=== PATIENT | female | born 1945 | race Caucasian/White ===

== ENCOUNTER 2016-10-14 10:08 | Day surgery (SDC) | payer MEDICARE, OTHER ==
[~2016-10-14 10:08] MED LIST: Lactated Ringers 1,000 ML IV SCH; Sodium Chloride 0.9% 10 ML Syringe FLUSH PRN
--- NOTE | 2016-10-14 11:41 | PCM.HPR ---
H & P Addendum review - H & P Addendum Review Date of Original H & P: 10/04/16 Date Reviewed: 10/14/16 Time Reviewed: 11:41 Patient was examined: No Changes (ok to proceed with colonoscopy)
[2016-10-14] MEDS ORDERED: Midazolam 1 MG/ML 2 ML SDV ONE ×2 (11:43→12:00)
[2016-10-14] MEDS ORDERED: Propofol 200 MG/20 ML SDV ONE ×2 (11:44→12:00)
--- NOTE | 2016-10-14 12:12 | PCM.OPNOTE ---
- General Post-Op/Procedure Note Date of Surgery/Procedure: 10/14/16 Operative Procedure(s): Colonoscopy Findings: Normal Pre Op Diagnosis: Hx Polyps Post-Op Diagnosis: Same Anesthesia Technique: MAC Primary Surgeon: Perico Marshall Anesthesia Provider: Martha Perkins Complications: None Condition: Good Free Text/Narrative:: Intake & Output 10/13/16 10/14/16 10/14/16 22:59 06:59 14:59 Intake Total 500 Balance 500
[2016-10-14 12:59] VITALS: BP 136/81
--- NOTE | 2016-10-14 14:59 | OR ---
Date of Procedure: 10/14/2016 PREOPERATIVE DIAGNOSIS: History of colon polyps. POSTOPERATIVE DIAGNOSIS: Normal colonoscopy. PROCEDURE: Colonoscopy. ANESTHESIA: IV sedation. PROCEDURE IN DETAIL: Patient was brought to procedure room, where she was placed on her left side and IV sedation administered. Digital rectal exam was performed which was normal. Colonoscope was inserted and advanced to the level of the cecum without difficulty. Cecal position was confirmed by identifying the appendiceal lumen and ileocecal valve. Prep was good and surfaces were well visualized. Upon withdrawing the scope, the ascending, transverse, and descending colon were normal in appearance. Sigmoid colon and rectum were normal. Retroflexion was normal. Air was removed and the scope withdrawn. Patient tolerated the procedure well and returned to recovery in stable condition. Recommend routine colon screening again in 5 years. AISHA ARRIAGA MD /[id number]
== END 2016-10-14 13:25 | disposition home or self-care (01) ==
LOC: LL.SDS 10:08
PROVIDERS: ATTEND Surgery
DX: Z12.11 Encounter for screening for malignant neoplasm of colon (principal); Z86.010 Personal history of colon polyps; I10 Essential (primary) hypertension; F32.9 Major depressive disorder, single episode, unspecified; F41.9 Anxiety disorder, unspecified; Z90.710 Acquired absence of both cervix and uterus; Z79.899 Other long term (current) drug therapy; F17.200 Nicotine dependence, unspecified, uncomplicated
CPT/HCPCS: G0105; J2250; J2704; J7120; 00810-QZ

== ENCOUNTER 2019-11-15 10:29 | Emergency (ER) | payer MEDICARE, OTHER ==
[2019-11-15 10:32] VITALS: BP 165/76; PULSE 81
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
[2019-11-15 11:23] LABS: CHLORIDE,CL 102 mmol/L (98-107); SODIUM,NA 137 mmol/L (136-145)
== END 2019-11-15 11:45 | disposition home or self-care (01) ==
LOC: LL.ED 10:29
DX: F41.8 Other specified anxiety disorders (principal); I10 Essential (primary) hypertension; M89.49 Other hypertrophic osteoarthropathy, multiple sites; E78.5 Hyperlipidemia, unspecified; Z71.6 Tobacco abuse counseling; F17.210 Nicotine dependence, cigarettes, uncomplicated; Z79.899 Other long term (current) drug therapy; E78.00 Pure hypercholesterolemia, unspecified; J44.9 Chronic obstructive pulmonary disease, unspecified
CPT/HCPCS: 36415; 80053; 85025; 99283

== ENCOUNTER 2019-11-23 14:38 | Inpatient (IN) | payer MEDICARE, OTHER ==
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
[2019-11-23] MEDS ORDERED: Acetaminophen 325 MG Tab PO PRN (19:37)
[2019-11-23] MEDS ORDERED: Nicotine 21 MG/24 Hr Patch TRDERM SCH (19:45)
[2019-11-23] MEDS ORDERED: Simvastatin 20 MG Tab PO SCH (20:00)
[2019-11-23] MEDS: Mirtazapine 15 MG Tab PO SCH (20:20)
[2019-11-23] MEDS: QUEtiapine 25 MG Tab PO SCH (20:20)
[2019-11-23] MEDS: LORazepam 1 MG Tab PO SCH (20:20)
[2019-11-23] MEDS: Sodium Chloride 0.9% 10 ML Syringe FLUSH SCH (20:21)
[2019-11-24 08:12] LABS: CHLORIDE,CL 107 mmol/L (98-107); SODIUM,NA 142 mmol/L (136-145)
[2019-11-24] MEDS: Nicotine 21 MG/24 Hr Patch TRDERM SCH (09:21)
[2019-11-24] MEDS: Hydrochlorothiazide 25 MG Tab PO SCH (09:23)
[2019-11-24] MEDS: amLODIPine 5 MG Tab PO SCH (09:23)
[2019-11-24] MEDS: DULoxetine 30 MG Cap PO SCH (09:23)
[2019-11-24] MEDS: Lisinopril 20 MG Tab PO SCH (09:23)
[2019-11-24] MEDS: LORazepam 1 MG Tab PO SCH ×3 (09:24→20:11)
[2019-11-24] MEDS: QUEtiapine 25 MG Tab PO SCH ×2 (09:24→20:11)
[2019-11-24] MEDS: Sodium Chloride 0.9% 10 ML Syringe FLUSH SCH ×2 (09:28→20:11)
[2019-11-24] MEDS: Simvastatin 20 MG Tab PO SCH (09:28)
--- NOTE | 2019-11-24 11:15 | PCM.PN ---
- General Info Date of Service: 11/24/19 Admission Dx/Problem (Free Text): 1. Fatigue 2. Mixed anxiety depression disorder Functional Status: Reports: Pain Controlled, Tolerating Diet, Ambulating, Urinating. Denies: New Symptoms, Incentive Spirometry Pain Score: 0 (Although 8/10 arm pain/neuropathy yesterday) - Review of Systems General: Reports: Fatigue. Denies: Fever, Weakness, Malaise, Chills, Night Sweats, Appetite (Good) HEENT: Reports: Glasses. Denies: Dysphasia, Ear Pain, Eye Pain, Headaches, Post Nasal Drip, Sinus Congestion, Sore Throat, Rhinitis, Visual Changes Pulmonary: Reports: No Symptoms. Denies: Shortness of Breath, Pleuritic Chest Pain, Cough, Wheezing Cardiovascular: Reports: Lightheadedness (Occasional). Denies: Chest Pain, Palpitations, Dyspnea on Exertion, Orthopnea, PND, Edema Gastrointestinal: Reports: No Symptoms, Other (No bowel movement since admission). Denies: Abdominal Pain, Constipation, Decreased Appetite, Diarrhea, Difficulty Swallowing, Flatus, Hematochezia, Melena, Nausea, Vomiting Genitourinary: Reports: No Symptoms. Denies: Dysuria, Frequency, Burning, Pain, Urgency, Incontinence, Hematuria, Retention, Flank Pain Musculoskeletal: Reports: Arm Pain (As above). Denies: Neck Pain, Back Pain, Leg Pain Skin: Reports: No Symptoms. Denies: Diaphoresis Neurological: Reports: Dizziness, Numbness, Paresthesia, Tingling. Denies: Confusion, Headache, Difficulty Walking, Weakness, Change in Speech, Gait Disturbance Psychiatric: Reports: Depression (Improved), Anxiety (Improved). Denies: Confusion, Agitation, Cravings, Hallucinations, Suicidal Ideation (Resolved) - Patient Data Vitals - Most Recent: Last Vital Signs Temp 36.9 C 11/23/19 20:00 Pulse 54 L 11/23/19 20:00 Resp 16 11/23/19 20:00 BP 137/69 11/24/19 09:23 Pulse Ox 99 11/23/19 20:00 Vital Signs - 24 hr 11/23/19 11/23/19 11/23/19 14:39 17:31 20:00 Temperature [ 37.3 C 36.9 C 36.9 C Oral] Pulse, 58 L 58 L 54 L Peripheral [ Left Pulse Oximetry] Respiratory 20 14 16 Rate Blood Pressure Blood Pressure 167/68 H 174/77 H 148/77 H [Left Upper Arm ] O2 Sat by Pulse 100 98 99 Oximetry 11/24/19 09:23 Temperature [ Oral] Pulse, Peripheral [ Left Pulse Oximetry] Respiratory Rate Blood Pressure 137/69 Blood Pressure [Left Upper Arm ] O2 Sat by Pulse Oximetry Weight - Most Recent: 56.4 kg I&O - Last 24 Hours: Intake & Output 11/23/19 11/24/19 11/24/19 22:59 06:59 14:59 Intake Total 960 200 Output Total 300 600 Balance 660 -400 Imaging Impressions - Last 24 Hours: None Lab Results Last 24 Hours: Laboratory Results - last 24 hr 11/24/19 11/24/19 Range/Units 07:35 07:35 WBC 7.5 (4.0-10.2) K/uL RBC 4.67 (3.77-5.09) M/uL Hgb 14.5 (11.7-15.5) g/dL Hct 43.8 (34.0-46.0) % MCV 93.8 (84.0-98.0) fL MCH 31.0 (28.2-33.3) pg MCHC 33.1 (31.7-36.0) g/dL RDW 14.2 H (11.2-14.1) % Plt Count 164 (150-350) K/uL Neut % (Auto) 56.5 (45.0-80.0) % Lymph % (Auto) 32.6 (10.0-50.0) % [place] % (Auto) 7.9 (2.0-14.0) % Eos % (Auto) 2.3 (0.0-5.0) % Baso % (Auto) 0.7 (0.0-2.0) % Neut # (Auto) 4.23 (1.40-7.00) K/uL Lymph # (Auto) 2.44 (0.50-3.50) K/uL [place] # (Auto) 0.59 (0.00-1.00) K/uL Eos # (Auto) 0.17 (0.00-0.50) K/uL Baso # (Auto) 0.05 (0.00-0.20) K/uL Sodium 142 (136-145) mmol/L Potassium 4.1 (3.5-5.1) mmol/L Chloride 107 (98-107) mmol/L Carbon Dioxide 28.4 (21.0-32.0) mmol/L BUN 15 (7-18) mg/dL Creatinine 0.67 (0.51-1.17) mg/dL Est Cr Clr Drug Dosing 58.65 mL/min Estimated GFR (MDRD) > 60 mL/min Glucose 103 (74-106) mg/dL Calcium 8.8 (8.5-10.1) mg/dL Magnesium 2.3 (1.8-2.4) mg/dL Total Bilirubin 0.4 (0.2-1.0) mg/dL AST 15 (15-37) U/L ALT 18 (12-78) U/L Alkaline Phosphatase 60 (46-116) IU/L Total Protein 6.4 (6.4-8.2) g/dL Albumin 3.4 (3.4-5.0) g/dL TSH, Ultra Sensitive 0.668 (0.358-3.740) mIU/mL Yoel Results Last 24 Hours: None Med Orders - Current: Current Medications Acetaminophen (Tylenol) 650 mg PO Q4H PRN PRN Reason: Pain Amlodipine Besylate (Norvasc) 10 mg PO DAILY [facility] Last Admin: 11/24/19 09:23 Dose: 10 mg Documented by: Duloxetine HCl (Cymbalta) 60 mg PO DAILY [facility] Last Admin: 11/24/19 09:23 Dose: 60 mg Documented by: Hydrochlorothiazide (Hydrochlorothiazide) 12.5 mg PO DAILY [facility] Last Admin: 11/24/19 09:23 Dose: 12.5 mg Documented by: Lisinopril (Prinivil) 40 mg PO DAILY [facility] Last Admin: 11/24/19 09:23 Dose: 40 mg Documented by: Lorazepam (Ativan) 1 mg PO QID [facility] Last Admin: 11/24/19 09:24 Dose: 1 mg Documented by: Mirtazapine (Remeron) 15 mg PO BEDTIME [facility] Last Admin: 11/23/19 20:20 Dose: 15 mg Documented by: Nicotine (Habitrol) 21 mg TRDERM DAILY [facility] Last Admin: 11/24/19 09:21 Dose: 21 mg Documented by: Quetiapine Fumarate (Seroquel) 25 mg PO BID [facility] Last Admin: 11/24/19 09:24 Dose: 25 mg Documented by: Simvastatin (Zocor) 40 mg PO DAILY [facility] Last Admin: 11/24/19 09:28 Dose: 40 mg Documented by: Sodium Chloride (Saline Flush) 10 ml FLUSH Q12HR [facility] Last Admin: 11/24/19 09:28 Dose: 10 ml Documented by: Discontinued Medications Nicotine (Habitrol) 21 mg TRDERM QPM [facility] Nicotine (Habitrol) 21 mg TRDERM QPM [facility] Last Admin: 11/23/19 20:19 Dose: Not Given Documented by: Simvastatin (Zocor) 40 mg PO BEDTIME [facility] Last Admin: 11/23/19 20:17 Dose: Not Given Documented by: - Exam Quality Assessment: DVT Prophylaxis. No: Supplemental Oxygen, Urine Catheter, Skin Breakdown, Restraints General: Alert, Oriented, Cooperative, No Acute Distress. No: Lethargic HEENT: Pupils Equal, Pupils Reactive, EOMI, Mucous Membr. Moist/Sisters. No: Scleral Icterus Neck: Supple, Trachea Midline, No JVD, No Thyromegaly. No: Lymphadenopathy Lungs: Clear to Auscultation, Normal Respiratory Effort. No: Rub Cardiovascular: Regular Rate, Regular Rhythm, No Murmurs, Bradycardia (Occasional). No: Gallops, Rubs GI/Abdominal Exam: Normal Bowel Sounds, Soft, Non-Tender, No Organomegaly, No Distention, No Abnormal Bruit, No Mass. No: Guarding (Female) Exam: Deferred Back Exam: Normal Inspection, Full Range of Motion. No: CVA Tenderness (L), CVA Tenderness (R), Muscle Spasm Extremities: Normal Inspection, Normal Range of Motion, Non-Tender, No Pedal Edema, Normal Capillary Refill. No: Meng's Sign Peripheral Pulses: 2+: Radial (L), Radial (R), Dorsalis Pedis (L), Dorsalis Pedis (R) Skin: Warm, Dry, Intact. No: Ecchymosis Neurological: No New Focal Deficit Psy/Mental Status: Alert, Anxious (Moderate improved), Depressed (Moderate improved). No: Agitated, Suicidal Ideation, Hallucinations, Withdrawal Symptoms Sepsis Event Note - Evaluation Sepsis Screening Result: No Definite Risk - Focused Exam Vital Signs: Vital Signs BP 11/24/19 09:23 137/69 Date Exam was Performed: 11/24/19 Time Exam was Performed: 11:07 - Problem List & Annotations (1) Fatigue SNOMED Code(s): 02145506 Code(s): R53.83 - OTHER FATIGUE Status: Acute Priority: High Current Visit: Yes Qualifiers: Fatigue type: due to depression Qualified Code(s): F32.9 - Major depressive disorder, single episode, unspecified; R53.83 - Other fatigue Annotation/Comment:: Some mild sedation secondary to high-dose Ativan, which will be decreased at this time. Her emotional status has improved with irrigation changes including additional Remeron, Seroquel, and Ativan. Note that her Cymbalta was decreased and her Neurontin was discontinued secondary to her emotional status, medication changes as above, and do medication treatment for her peripheral neuropathy. No other change in medication for now with further adjustments during this hospitalization. Patient may need to be transferred to swing bed on 10/26 for further medication adjustments. Attempt to obtain a Zoom psychotherapy consultation on 10/26 prior to discharge. (2) Mixed anxiety depressive disorder SNOMED Code(s): 935771610 Code(s): F41.8 - OTHER SPECIFIED ANXIETY DISORDERS Status: Chronic Priority: High Current Visit: Yes Annotation/Comment:: Prior to admission the patient and her family were extremely desperate despite multiple consultations and evaluations as below. This did require inpatient/acute care admission in this facility with improved status today including no suicidal ideation. Medications adjustments required during this as above. Poor control with actually worsening symptoms since adjustment of medications by [facility] emergency room physician on 11/10 and after her multiple consultations as above. The patient and her family are very concerned that the patient would actually attempt suicide, although she does not have a specific plan at this time. Per their request she will be admitted into this facility with further medication adjustments. Psychiatric consultation depending on her clinical course. She has not been able to get any relief for her emotional issues despite multiple referrals as above. The patient was also once again counseled concerning tapering herself off of her moderate coffee use over several weeks rather than stopping caffeine use entirely/immediately. Patient did not feel that she received much benefit from a telephone consultation with Garret payton, psychotherapist, on 11/13 other subsequent ministerial and psychotherapy sessions as per emergency room note.They were once again counseled extensively concerning the physical, emotional, and spiritual aspects of her emotions with emotional support provided. The importance of daily prayer, etc. was also once again extensively discussed. They will consider possible minicounseling sessions with her regular provider versus referral to another psychiatrist and/or psychologist after discharge. (3) Hypertension SNOMED Code(s): 72779135 Code(s): I10 - ESSENTIAL (PRIMARY) HYPERTENSION Status: Chronic Priority: Medium Current Visit: Yes Qualifiers: Hypertension type: essential hypertension Qualified Code(s): I10 - Essential (primary) hypertension Annotation/Comment:: Moderate control secondary to her anxiety. Observe for now with further medication adjustments during this hospitalization depending on her clinical course. (4) Hyperlipidemia SNOMED Code(s): 99152009 Code(s): E78.5 - HYPERLIPIDEMIA, UNSPECIFIED Status: Chronic Priority: Medium Current Visit: Yes Qualifiers: Hyperlipidemia type: unspecified Qualified Code(s): E78.5 - Hyperlipidemia, unspecified Annotation/Comment:: Currently under therapy. Continue to observe closely by her regular provider. No chest pain or anginal type symptoms. (5) Osteoarthritis SNOMED Code(s): 499610607 Code(s): M19.90 - UNSPECIFIED OSTEOARTHRITIS, UNSPECIFIED SITE Status: Acute Priority: Medium Current Visit: Yes Qualifiers: Osteoarthritis location: multiple joints Osteoarthritis type: primary Qualified Code(s): M89.49 - Other hypertrophic osteoarthropathy, multiple sites Annotation/Comment:: Stable by history (6) Tobacco abuse counseling SNOMED Code(s): 055558758, [id number], [id number] Code(s): Z71.6 - TOBACCO ABUSE COUNSELING Status: Chronic Priority: Medium Current Visit: Yes Annotation/Comment:: Nicotini patch during this hospitalization. Tobacco cessation once her emotional status improves. Information provided in last ER visit and will also be provided at time of discharge. - Problem List Review Problem List Initiated/Reviewed/Updated: Yes - My Orders Last 24 Hours: My Active Orders 11/23/19 19:37 Communication Order [RC] PER UNIT ROUTINE Communication Order [RC] PER UNIT ROUTINE Height and Weight [RC] DAILY Intake and Output Strict [RC] 06,18 Oxygen Therapy [RC] .PRN Pulse Oximetry [RC] .PRN Up With Assistance [RC] ASDIRECTED Vital Signs [RC] QSHIFT Acetaminophen [Tylenol] 650 mg PO Q4H PRN GM Immunization Reflex [OM.PC] Click to Edit 11/23/19 19:38 Communication, Vaccine [RC] PER UNIT ROUTINE Vaccines to be Administered [RC] .DISCHARGE 11/23/19 19:40 Communication Order [RC] 199911/23/19 19:45 QUEtiapine [SEROqueL] 25 mg PO BID 11/23/19 20:00 LORazepam [Ativan] 1 mg PO QID Mirtazapine [Remeron] 15 mg PO BEDTIME Sodium Chloride 0.9% [Saline Flush] 10 ml FLUSH Q12HR 11/23/19 23:45 Resuscitation Status Routine 11/24/19 08:00 DULoxetine [Cymbalta] 60 mg PO DAILY Nicotine [Habitrol] 21 mg TRDERM DAILY Simvastatin [Zocor] 40 mg PO DAILY amLODIPine [Norvasc] 10 mg PO DAILY hydroCHLOROthiazide 12.5 mg PO DAILY lisinopriL [Prinivil] 40 mg PO DAILY - Assessment Assessment:: As above. - Plan Plan:: As above. Extensive precautions were given to the patient, who is in agreement with the treatment plan. The patient will require about 2-3 days of inpatient/acute care secondary to multiple health problems as above.
[2019-11-24] MEDS ORDERED: LORazepam 1 MG Tab PO SCH (12:00)
[2019-11-24] MEDS ORDERED: Nicotine 21 MG/24 Hr Patch TRDERM SCH (18:37)
[2019-11-24] MEDS: Mirtazapine 15 MG Tab PO SCH (20:11)
[2019-11-25] MEDS: Nicotine 21 MG/24 Hr Patch TRDERM SCH (08:57)
[2019-11-25] MEDS: DULoxetine 30 MG Cap PO SCH (08:58)
[2019-11-25] MEDS: QUEtiapine 25 MG Tab PO SCH ×2 (08:59→17:26)
[2019-11-25] MEDS: Hydrochlorothiazide 25 MG Tab PO SCH (08:59)
[2019-11-25] MEDS: Lisinopril 20 MG Tab PO SCH (08:59)
[2019-11-25] MEDS: amLODIPine 5 MG Tab PO SCH (09:00)
[2019-11-25] MEDS: Simvastatin 20 MG Tab PO SCH (09:00)
[2019-11-25] MEDS: Sodium Chloride 0.9% 10 ML Syringe FLUSH SCH ×2 (09:05→19:58)
[2019-11-25] MEDS: LORazepam 1 MG Tab PO SCH ×2 (09:05→19:58)
--- NOTE | 2019-11-25 09:15 | PCM.PN ---
- General Info Date of Service: 11/25/19 Admission Dx/Problem (Free Text): 1. Fatigue 2. Mixed anxiety depression disorder Functional Status: Reports: Pain Controlled, Tolerating Diet, Ambulating, Urinating, New Symptoms (Dizziness) Pain Score: 0 - Review of Systems General: Reports: Fatigue (Much improved). Denies: Fever, Weakness, Malaise, Chills, Night Sweats, Appetite (Good) HEENT: Reports: Glasses. Denies: Contact Lenses, Dysphasia, Ear Pain, Eye Pain, Headaches, Post Nasal Drip, Sinus Congestion, Sore Throat, Rhinitis, Visual Changes Pulmonary: Reports: No Symptoms. Denies: Shortness of Breath, Pleuritic Chest Pain, Cough, Sputum, Wheezing Cardiovascular: Reports: Orthopnea, Lightheadedness. Denies: Chest Pain, Palpitations, Dyspnea on Exertion, PND, Edema Gastrointestinal: Reports: Constipation, Other (No bowel movement since admission with prune juice given this morning). Denies: Abdominal Pain, Decreased Appetite, Diarrhea, Difficulty Swallowing, Flatus, Hematochezia, Melena, Nausea, Vomiting Genitourinary: Reports: No Symptoms. Denies: Dysuria, Frequency, Burning, Pain, Urgency, Incontinence, Hematuria, Retention, Flank Pain Musculoskeletal: Reports: No Symptoms. Denies: Neck Pain, Shoulder Pain, Arm Pain, Hand Pain, Back Pain, Leg Pain Skin: Reports: No Symptoms. Denies: Diaphoresis, Bruising, Rash Neurological: Reports: Dizziness. Denies: Confusion, Headache, Numbness (Resolved paresthesias), Paresthesia, Tingling, Difficulty Walking, Weakness Psychiatric: Reports: Depression (Much improved with no suicidal ideation), Anxiety (Improved). Denies: Confusion, Agitation, Cravings, Hallucinations, Suicidal Ideation, Homicidal Ideation - Patient Data Vitals - Most Recent: Last Vital Signs Temp 37.2 C 11/25/19 08:00 Pulse 56 L 11/25/19 08:00 Resp 16 11/25/19 08:00 BP 139/77 11/25/19 09:00 Pulse Ox 99 11/25/19 08:00 Vital Signs - 24 hr 11/24/19 11/24/19 11/24/19 09:23 16:00 22:21 Temperature [ 36.9 C Oral] Temperature [ 36.8 C Temporal] Pulse, 72 63 Peripheral [ Left Pulse Oximetry] Respiratory 16 16 Rate Blood Pressure 137/69 Blood Pressure 111/67 [Left Upper Arm ] Blood Pressure 111/65 [Right Upper Arm] O2 Sat by Pulse 97 100 Oximetry 11/25/19 11/25/19 11/25/19 08:00 08:59 09:00 Temperature [ Oral] Temperature [ 37.2 C Temporal] Pulse, 56 L Peripheral [ Left Pulse Oximetry] Respiratory 16 Rate Blood Pressure 139/77 139/77 Blood Pressure [Left Upper Arm ] Blood Pressure 139/77 [Right Upper Arm] O2 Sat by Pulse 99 Oximetry Weight - Most Recent: 56.699 kg I&O - Last 24 Hours: Intake & Output 11/24/19 11/25/19 11/25/19 22:59 06:59 14:59 Intake Total 800 300 Output Total 900 Balance -100 300 Imaging Impressions - Last 24 Hours: None Lab Results Last 24 Hours: None Yoel Results Last 24 Hours: None Med Orders - Current: Current Medications Acetaminophen (Tylenol) 650 mg PO Q4H PRN PRN Reason: Pain Amlodipine Besylate (Norvasc) 10 mg PO QPM [facility] Duloxetine HCl (Cymbalta) 60 mg PO DAILY [facility] Last Admin: 11/25/19 08:58 Dose: 60 mg Documented by: Lisinopril (Prinivil) 40 mg PO DAILY [facility] Lorazepam (Ativan) 1 mg PO BID@0800,1999 [facility] Mirtazapine (Remeron) 15 mg PO BEDTIME [facility] Last Admin: 11/24/19 20:11 Dose: 15 mg Documented by: Nicotine (Habitrol) 21 mg TRDERM DAILY [facility] Last Admin: 11/25/19 08:57 Dose: 21 mg Documented by: Quetiapine Fumarate (Seroquel) 25 mg PO BID [facility] Last Admin: 11/25/19 08:59 Dose: 25 mg Documented by: Simvastatin (Zocor) 40 mg PO DAILY [facility] Last Admin: 11/25/19 09:00 Dose: 40 mg Documented by: Sodium Chloride (Saline Flush) 10 ml FLUSH Q12HR [facility] Last Admin: 11/25/19 09:05 Dose: Not Given Documented by: Discontinued Medications Amlodipine Besylate (Norvasc) 10 mg PO DAILY [facility] Last Admin: 11/25/19 09:00 Dose: 10 mg Documented by: Hydrochlorothiazide (Hydrochlorothiazide) 12.5 mg PO DAILY [facility] Last Admin: 11/25/19 08:59 Dose: 12.5 mg Documented by: Lisinopril (Prinivil) 40 mg PO DAILY [facility] Last Admin: 11/25/19 08:59 Dose: 40 mg Documented by: Lisinopril (Prinivil) 40 mg PO QPM [facility] Lorazepam (Ativan) 1 mg PO QID [facility] Last Admin: 11/24/19 09:24 Dose: 1 mg Documented by: Lorazepam (Ativan) 1 mg PO TID [facility] Lorazepam (Ativan) 1 mg PO TID@0800,1400,2000 [facility] Last Admin: 11/25/19 09:05 Dose: Not Given Documented by: Nicotine (Habitrol) 21 mg TRDERM QPM [facility] Nicotine (Habitrol) 21 mg TRDERM QPM [facility] Last Admin: 11/23/19 20:19 Dose: Not Given Documented by: Simvastatin (Zocor) 40 mg PO BEDTIME [facility] Last Admin: 11/23/19 20:17 Dose: Not Given Documented by: - Exam Quality Assessment: DVT Prophylaxis. No: Supplemental Oxygen, Central Line/PICC, Urine Catheter, Skin Breakdown, Restraints General: Alert, Oriented, Cooperative, No Acute Distress HEENT: Pupils Equal, Pupils Reactive, Mucous Membr. Moist/[place], Other (Patient wearing glasses). No: Scleral Icterus Neck: Supple, Trachea Midline, No JVD, No Thyromegaly. No: Lymphadenopathy Lungs: Clear to Auscultation, Normal Respiratory Effort. No: Rub Cardiovascular: Regular Rate, Regular Rhythm, No Murmurs. No: Gallops, Rubs GI/Abdominal Exam: Normal Bowel Sounds, Soft, Non-Tender, No Organomegaly, No Distention, No Abnormal Bruit, No Mass. No: Guarding (Female) Exam: Deferred Back Exam: Normal Inspection, Full Range of Motion. No: CVA Tenderness (L), CVA Tenderness (R), Muscle Spasm Extremities: Normal Inspection, Normal Range of Motion, Non-Tender, No Pedal Edema, Normal Capillary Refill. No: Meng's Sign Peripheral Pulses: 2+: Radial (L), Radial (R), Dorsalis Pedis (L), Dorsalis Pedis (R) Skin: Warm, Dry, Intact Neurological: No New Focal Deficit Psy/Mental Status: Alert, Anxious (Mild much improved), Depressed (Much improved with excellent eye contact). No: Agitated, Suicidal Ideation, Homicidal Ideation, Hallucinations, Withdrawal Symptoms Sepsis Event Note - Evaluation Sepsis Screening Result: No Definite Risk - Focused Exam Vital Signs: Vital Signs Temp Pulse Resp BP BP Pulse Ox 11/25/19 09:00 139/77 11/25/19 08:59 139/77 11/25/19 08:00 37.2 C 56 L 16 139/77 99 11/24/19 22:21 36.8 C 63 16 111/65 100 Date Exam was Performed: 11/25/19 Time Exam was Performed: 09:06 - Problem List & Annotations (1) Fatigue SNOMED Code(s): 90367040 Code(s): R53.83 - OTHER FATIGUE Status: Acute Priority: High Current Visit: Yes Qualifiers: Fatigue type: due to depression Qualified Code(s): F32.9 - Major depressive disorder, single episode, unspecified; R53.83 - Other fatigue Annotation/Comment:: Some mild sedation secondary to high-dose Ativan, which will be further decreased at this time. She will likely need further low-dose Ativan on an outpatient basis for the short-term with addiction potential, etc. extensively discussed. Her emotional status has significantly improved improved with medication changes including additional Remeron, Seroquel, and Ativan. Note that her Cymbalta was decreased and her Neurontin was discontinued secondary to her emotional status, medication changes as above, and duel medication treatment for her peripheral neuropathy. Despite mild persistent peripheral neuropathy on 11/22 this has now completely resolved with no need to increase her Cymbalta back to her previous regimen. Secondary to some nonspecific dizziness her Norvasc will be changed to a every afternoon a rather than every morning basis starting on 11/25. No other change in medication for now with further adjustments during this hospitalization. Patient may need to be transferred to swing bed on 10/26 for further medication adjustments, if she has any sort of relapse. A Zoom psychotherapy consultation with the [facility] therapist from [facility] has been ordered for the a.m. on 10/26 prior to discharge. (2) Mixed anxiety depressive disorder SNOMED Code(s): 073723563 Code(s): F41.8 - OTHER SPECIFIED ANXIETY DISORDERS Status: Chronic Priority: High Current Visit: Yes Annotation/Comment:: Prior to admission the patient and her family were extremely desperate despite multiple consultations and evaluations as below. This did require inpatient/acute care admission in this facility with improved status on 11/23, including no suicidal ideation. Medications adjustments required during this hospitalization as above. Note previous extremely poor control of her depression prior to admission with actually worsening symptoms since adjustment of medications by [facility] emergency room physician on 11/10 and after her multiple consultations as per the emergency room note. The patient and her family are very concerned that the patient would actually attempt suicide, although she did not have a specific plan at the time of admission. Per their request she was admitted into this facility with further medication adjustments. Psychiatric consultation depending on her clinical course. She has not been able to get any relief for her emotional issues despite multiple referrals. The patient was also once again counseled concerning tapering herself off of her moderate coffee use over several weeks rather than stopping caffeine use entirely/immediately. Patient did not feel that she received much benefit from a telephone consultation with Garret payton, psychotherapist, on 11/13 or other subsequent ministerial and psychotherapy sessions as per emergency room note.They were once again counseled extensively concerning the physical, emotional, and spiritual aspects of her emotions with emotional support provided. The importance of daily prayer, etc. was also once again extensively discussed. Resumption of ministerial counseling and additional psychotherapy counseling should be arranged prior to discharge. (3) Hypertension SNOMED Code(s): 83891191 Code(s): I10 - ESSENTIAL (PRIMARY) HYPERTENSION Status: Chronic Priority: Medium Current Visit: Yes Qualifiers: Hypertension type: essential hypertension Qualified Code(s): I10 - Essential (primary) hypertension Annotation/Comment:: Her blood pressures have much improved at this time, however some mild hypotension and dizziness. Her anti-hypertensive medications will be staggered with Norvasc changed to a p.m. regimen as above. Moderate control and elevated blood pressures during initial parts of this hospitalization likely secondary to her anxiety. Observe for now with further medication adjustments during this hospitalization depending on her clinical course. (4) Hyperlipidemia SNOMED Code(s): 53410621 Code(s): E78.5 - HYPERLIPIDEMIA, UNSPECIFIED Status: Chronic Priority: Medium Current Visit: Yes Qualifiers: Hyperlipidemia type: unspecified Qualified Code(s): E78.5 - Hyperlipidemia, unspecified Annotation/Comment:: Currently under therapy. Continue to observe closely by her regular provider. No chest pain or anginal type symptoms. 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 Tobacco cessation once her emotional status improves. Information provided in last ER visit and will also be provided at time of discharge. (7) Peripheral neuropathy SNOMED Code(s): 257127213 Code(s): G62.9 - POLYNEUROPATHY, UNSPECIFIED Status: Chronic Priority: Medium Current Visit: Yes Qualifiers: Peripheral neuropathy type: polyneuropathy, other Qualified Code(s): G62.89 - Other specified polyneuropathies Annotation/Comment:: As above - Problem List Review Problem List Initiated/Reviewed/Updated: Yes - My Orders Last 24 Hours: My Active Orders 11/25/19 20:00 LORazepam [Ativan] 1 mg PO BID@0800,199911/26/19 08:00 lisinopriL [Prinivil] 40 mg PO DAILY 11/26/19 18:00 amLODIPine [Norvasc] 10 mg PO QPM - Assessment Assessment:: As above. - Plan Plan:: As above. Extensive precautions were given to the patient, who is in agreement with the treatment plan. circular knife cutter machine physician assumes care in the a.m. with possible discharge to home versus transfer to swing bed care tomorrow as above
[2019-11-25] MEDS: Mirtazapine 15 MG Tab PO SCH (19:58)
[2019-11-26] MEDS ORDERED: Lisinopril 20 MG Tab PO SCH ×2 (08:00→18:00)
[2019-11-26] MEDS: LORazepam 1 MG Tab PO SCH (08:36)
[2019-11-26] MEDS: DULoxetine 30 MG Cap PO SCH (08:36)
[2019-11-26] MEDS: QUEtiapine 25 MG Tab PO SCH (08:36)
[2019-11-26] MEDS: Nicotine 21 MG/24 Hr Patch TRDERM SCH (08:37)
[2019-11-26] MEDS: Simvastatin 20 MG Tab PO SCH (08:37)
[2019-11-26] MEDS: Sodium Chloride 0.9% 10 ML Syringe FLUSH SCH (08:37)
[2019-11-26 08:38] VITALS: BP 150/79
[2019-11-26 08:43] VITALS: PULSE 65
--- NOTE | 2019-11-26 14:13 | PCM.DCSUM1 ---
Discharge Summary - Hospital Course Brief History: Admitted to evaluation due to significan anxiety/depression along with suicidal ideation. Diagnosis: Stroke: No - Discharge Data Discharge Date: 11/26/19 Discharge Disposition: Home, Self-Care 01 Condition: Good - Referral to Home Health Primary Care Physician: Shirin Mckeon NP - Discharge Diagnosis/Problem(s) (1) Mixed anxiety depressive disorder SNOMED Code(s): 390855509 ICD Code: F41.8 - OTHER SPECIFIED ANXIETY DISORDERS Status: Chronic Priority: High Current Visit: Yes Problem Details: Prior to admission the patient and her family were extremely desperate despite multiple consultations and evaluations as below. This did require inpatient/acute care admission in this facility with improved status on 11/23, including no suicidal ideation. Medications adjustments required during this hospitalization as above. Note previous extremely poor control of her depression prior to admission with actually worsening symptoms since adjustment of medications by [facility] emergency room physician on 11/10 and after her multiple consultations as per the emergency room note. The patient and her family are very concerned that the patient would actually attempt suicide, although she did not have a specific plan at the time of admission. Per their request she was admitted into this facility with further medication adjustments. She has not been able to get any relief for her emotional issues despite multiple referrals. Overall she is feeling better today. We reviewed the new medication regimen. We also reviewed other adjuncts that can be helpful such as daily exercise, meditation, and eating a clean/non- inflammatory diet. She will be continuing to see counselor Garret Campos (tomorrow at her home) and also will continue visiting with her automatic casting machine operator. She does not want telepsych at this time. Discharge home today. (2) Fatigue SNOMED Code(s): 12369673 ICD Code: R53.83 - OTHER FATIGUE Status: Acute Priority: High Current Visit: Yes Problem Details: Some mild sedation secondary to Ativan and Seroquel. She feels that her earlier amount of fatigue has improved overall. Her emotional status has significantly improved improved with medication changes including additional Remeron, Seroquel, and Ativan. Cymbalta was decreased and her Neurontin was discontinued. Qualifiers: Fatigue type: due to depression Qualified Code(s): F32.9 - Major depressive disorder, single episode, unspecified; R53.83 - Other fatigue (3) Osteoarthritis SNOMED Code(s): 787059544 ICD Code: M19.90 - UNSPECIFIED OSTEOARTHRITIS, UNSPECIFIED SITE Status: Acute Priority: Medium Current Visit: Yes Problem Details: Stable by history Qualifiers: Osteoarthritis location: multiple joints Osteoarthritis type: primary Qualified Code(s): M89.49 - Other hypertrophic osteoarthropathy, multiple sites (4) Hyperlipidemia SNOMED Code(s): 79674218 ICD Code: E78.5 - HYPERLIPIDEMIA, UNSPECIFIED Status: Chronic Priority: Medium Current Visit: Yes Problem Details: Currently under therapy. Continue to observe closely by her regular provider. No chest pain or anginal type sympt oms. Qualifiers: Hyperlipidemia type: unspecified Qualified Code(s): E78.5 - Hyperlipidemia, unspecified (5) Hypertension SNOMED Code(s): 45734700 ICD Code: I10 - ESSENTIAL (PRIMARY) HYPERTENSION Status: Chronic Priority: Medium Current Visit: Yes Problem Details: Her blood pressures have much improved at this time, however some mild hypotension and dizziness i ntermittently. . Her anti-hypertensive medications staggered with Norvasc changed to a p.m. regimen as above. Moderate control and elevated blood pressures during initial parts of this hospitalization likely secondary to her anxiety. Diuretic held for now but may be restarted later depending of BP trends.Patient recommended to check BPs at home daily for better idea as to pattern once discharged and to bring these along to office visits. Qualifiers: Hypertension type: essential hypertension Qualified Code(s): I10 - Essential (primary) hypertension (6) Peripheral neuropathy SNOMED Code(s): 129952320 ICD Code: G62.9 - POLYNEUROPATHY, UNSPECIFIED Status: Chronic Priority: Medium Current Visit: Yes Problem Details: As above Qualifiers: Peripheral neuropathy type: polyneuropathy, other Qualified Code(s): G62.89 - Other specified polyneuropathies (7) Tobacco abuse counseling SNOMED Code(s): 542509363, 595167797, 234601628 ICD Code: Z71.6 - TOBACCO ABUSE COUNSELING Status: Chronic Priority: Medium Current Visit: Yes Problem Details: Nicotini patch during this hospitalization. Tobacco cessation once her emotional status improves. Information provided in last ER visit and will also be provided at time of discharge. - Patient Summary/Data Hospital Course: Patient feels better overall. Denies suicidal thoughts/ideation today. Has more energy. Did have several medication adjustments with both psych and BP meds since admission. BP trend overall has been good. Patient's complaint of intermittent lightheadedness has improved. - Patient Instructions Diet: Anti-Inflammatory (whole food/limited carb) Activity: As Tolerated Driving: May Drive Today Showering/Bathing: May Shower Other/Special Instructions: Highly recommend changing diet for the [facility] as we discussed in ER! Follow up with Garret Campos as planned. Follow up at [facility] Tuesday at 3:30PM. Follow up otherwise as needed if you have problems/worsening issues. Recommend checking your own blood pressure at home to keep track of trends. For now we stopped your diuretic, but that may need to be added back depening on how your blood pressure responds/if you have any dizziness over the next few weeks. - Discharge Plan *PRESCRIPTION DRUG MONITORING PROGRAM REVIEWED*: Not Applicable *COPY OF PRESCRIPTION DRUG MONITORING REPORT IN PATIENT [place]: Not Applicable Prescriptions/Med Rec: LORazepam [Ativan] 0.5 mg PO DAILY #14 tablet Ubidecarenone [Co Q-10] 100 mg PO DAILY 11 Days #30 capsule amLODIPine [Norvasc] 10 mg PO QPM #30 tablet lisinopriL [Prinivil] 40 mg PO DAILY #30 tablet Mirtazapine [Remeron] 15 mg PO BEDTIME #14 tablet QUEtiapine [SEROquel] 25 mg PO BID #60 tablet Cholecalciferol (Vitamin D3) [Vitamin D3] 100 mcg PO DAILY 11 Days #30 capsule Vitamin K2 40 mcg PO DAILY #30 tablet Home Medications: Home Meds Simvastatin 40 mg PO BEDTIME 09/04/13 [History] Meloxicam [Mobic] 7.5 mg PO Q12H 11/15/19 [History] DULoxetine HCl [Cymbalta] 60 mg PO DAILY 11/23/19 [History] Cholecalciferol (Vitamin D3) [Vitamin D3] 100 mcg PO DAILY 11 Days #30 capsule 11/26/19 [Rx] LORazepam [Ativan] 0.5 mg PO DAILY #14 tablet 11/26/19 [Rx] Mirtazapine [Remeron] 15 mg PO BEDTIME #14 tablet 11/26/19 [Rx] QUEtiapine [SEROquel] 25 mg PO BID #60 tablet 11/26/19 [Rx] Ubidecarenone [Co Q-10] 100 mg PO DAILY 11 Days #30 capsule 11/26/19 [Rx] Vitamin K2 40 mcg PO DAILY #30 tablet 11/26/19 [Rx] amLODIPine [Norvasc] 10 mg PO QPM #30 tablet 11/26/19 [Rx] lisinopriL [Prinivil] 40 mg PO DAILY #30 tablet 11/26/19 [Rx] Forms: ED Department Discharge Referrals: Shirin Mckeon NP [Primary Care Provider] - - Discharge Summary/Plan Comment DC Time >30 min.: No - General Info Date of Service: 11/26/19 Admission Dx/Problem (Free Text: 1. Fatigue 2. Mixed anxiety depression disorder Subjective Update: Feels better. More energy. Slept better. No suicidal thoughts. No dizziness complaint today. Functional Status: Reports: Pain Controlled, Tolerating Diet, Ambulating, Urinating. Denies: New Symptoms - Review of Systems General: Reports: No Symptoms HEENT: Reports: Glasses Pulmonary: Reports: No Symptoms Cardiovascular: Reports: No Symptoms Gastrointestinal: Reports: No Symptoms Genitourinary: Reports: No Symptoms Musculoskeletal: Reports: No Symptoms (No acute changes from baseline) Neurological: Reports: No Symptoms. Denies: Confusion, Dizziness, Headache Psychiatric: Reports: Depression (mild), Anxiety (mild). Denies: Confusion, Mood Lability, Agitation, Cravings, Hallucinations, Suicidal Ideation, Homicidal Ideation - Patient Data Vitals - Most Recent: Last Vital Signs Temp 37.3 C 11/26/19 08:00 Pulse 65 11/26/19 08:00 Resp 18 11/26/19 08:00 BP 150/79 H 11/26/19 08:36 Pulse Ox 100 11/26/19 08:00 Weight - Most Recent: 56.109 kg I&O - Last 24 hours: Intake & Output 11/25/19 11/26/19 11/26/19 22:59 06:59 14:59 Intake Total 240 300 360 Output Total 1150 400 Balance -910 -100 360 Med Orders - Current: Current Medications Acetaminophen (Tylenol) 650 mg PO Q4H PRN PRN Reason: Pain Amlodipine Besylate (Norvasc) 10 mg PO QPM [facility] Duloxetine HCl (Cymbalta) 60 mg PO DAILY [facility] Last Admin: 11/26/19 08:36 Dose: 60 mg Documented by: Lisinopril (Prinivil) 40 mg PO DAILY [facility] Last Admin: 11/26/19 08:36 Dose: 40 mg Documented by: Lorazepam (Ativan) 1 mg PO BID@799,1999 [facility] Last Admin: 11/26/19 08:36 Dose: 1 mg Documented by: Mirtazapine (Remeron) 15 mg PO BEDTIME [facility] Last Admin: 11/25/19 19:58 Dose: 15 mg Documented by: Nicotine (Habitrol) 21 mg TRDERM DAILY [facility] Last Admin: 11/26/19 08:37 Dose: 21 mg Documented by: Quetiapine Fumarate (Seroquel) 25 mg PO BID [facility] Last Admin: 11/26/19 08:36 Dose: 25 mg Documented by: Simvastatin (Zocor) 40 mg PO DAILY [facility] Last Admin: 11/26/19 08:37 Dose: 40 mg Documented by: Sodium Chloride (Saline Flush) 10 ml FLUSH Q12HR [facility] Last Admin: 11/26/19 08:37 Dose: Not Given Documented by: Discontinued Medications Amlodipine Besylate (Norvasc) 10 mg PO DAILY [facility] Last Admin: 11/25/19 09:00 Dose: 10 mg Documented by: Hydrochlorothiazide (Hydrochlorothiazide) 12.5 mg PO DAILY [facility] Last Admin: 11/25/19 08:59 Dose: 12.5 mg Documented by: Lisinopril (Prinivil) 40 mg PO DAILY [facility] Last Admin: 11/25/19 08:59 Dose: 40 mg Documented by: Lisinopril (Prinivil) 40 mg PO QPM [facility] Lorazepam (Ativan) 1 mg PO QID [facility] Last Admin: 11/24/19 09:24 Dose: 1 mg Documented by: Lorazepam (Ativan) 1 mg PO TID [facility] Lorazepam (Ativan) 1 mg PO TID@0800,1399,1999 [facility] Last Admin: 11/25/19 09:05 Dose: Not Given Documented by: Nicotine (Habitrol) 21 mg TRDERM QPM [facility] Nicotine (Habitrol) 21 mg TRDERM QPM [facility] Last Admin: 11/23/19 20:19 Dose: Not Given Documented by: Simvastatin (Zocor) 40 mg PO BEDTIME [facility] Last Admin: 07/10/20 20:17 Dose: Not Given Documented by: - Exam General: Reports: Alert, Oriented, Cooperative, No Acute Distress HEENT: Reports: Pupils Equal, Pupils Reactive, EOMI, Mucous Membr. Moist/[place] Neck: Reports: Supple Lungs: Reports: Clear to Auscultation, Normal Respiratory Effort Cardiovascular: Reports: Regular Rate, Regular Rhythm GI/Abdominal Exam: Normal Bowel Sounds, Soft, Non-Tender, No Distention (Female) Exam: Deferred Rectal (Female) Exam: Deferred Back Exam: Denies: CVA Tenderness (L), CVA Tenderness (R), Muscle Spasm Extremities: Normal Inspection, Normal Range of Motion, Normal Capillary Refill Skin: Reports: Warm, Dry Neurological: Reports: No New Focal Deficit Psy/Mental Status: Reports: Alert, Normal Affect, Normal Mood
[2019-11-26] MEDS ORDERED: amLODIPine 5 MG Tab PO SCH (18:00)
== END 2019-11-26 14:53 | disposition home or self-care (01) | DRG 880 ==
LOC: LL.ED 14:38 → LL.MS 16:39 → UNDOADMIN 16:39 → LL.MS 18:33 → UNDODISIN 11-26 14:53
PROVIDERS: ADMIT Family Medicine; ATTEND Family Medicine
DX: F41.8 Other specified anxiety disorders (principal); M89.49 Other hypertrophic osteoarthropathy, multiple sites; E78.5 Hyperlipidemia, unspecified; I10 Essential (primary) hypertension; G62.89 Other specified polyneuropathies; H54.7 Unspecified visual loss; E78.00 Pure hypercholesterolemia, unspecified; I49.9 Cardiac arrhythmia, unspecified; I49.1 Atrial premature depolarization; I49.3 Ventricular premature depolarization; J44.9 Chronic obstructive pulmonary disease, unspecified; Z90.710 Acquired absence of both cervix and uterus; N93.8 Other specified abnormal uterine and vaginal bleeding; M54.9 Dorsalgia, unspecified; M19.90 Unspecified osteoarthritis, unspecified site; G89.29 Other chronic pain; M54.2 Cervicalgia; G62.9 Polyneuropathy, unspecified; L30.9 Dermatitis, unspecified; M85.80 Other specified disorders of bone density and structure, unspecified site; M81.0 Age-related osteoporosis without current pathological fracture; F17.210 Nicotine dependence, cigarettes, uncomplicated; R53.83 Other fatigue; Z71.6 Tobacco abuse counseling; Z79.899 Other long term (current) drug therapy; Z86.010 Personal history of colon polyps
CPT/HCPCS: 36415; 80053; 83735; 84443; 85025; 99284; A9270-GY

== ENCOUNTER 2020-12-18 13:54 | Emergency (ER) | payer MEDICARE, OTHER ==
[2020-12-18 14:04] VITALS: BP 129/59; PULSE 56
[2020-12-18 14:39] LABS: CHLORIDE,CL 105 mmol/L (98-107); SODIUM,NA 139 mmol/L (136-145)
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
== END 2020-12-18 15:18 | disposition home or self-care (01) ==
LOC: LL.ED 13:54
DX: M54.5 Low back pain (principal); M25.551 Pain in right hip; E78.00 Pure hypercholesterolemia, unspecified; I10 Essential (primary) hypertension; J44.9 Chronic obstructive pulmonary disease, unspecified; Z79.899 Other long term (current) drug therapy; M43.27 Fusion of spine, lumbosacral region; M16.0 Bilateral primary osteoarthritis of hip; M25.78 Osteophyte, vertebrae; M51.37 Other intervertebral disc degeneration, lumbosacral region
CPT/HCPCS: 36415; 72100; 72202; 80053; 85025; 99283; 99284

== ENCOUNTER 2024-06-24 16:29 | Emergency (ER) | payer MEDICARE, OTHER ==
[2024-06-24] MEDS: Albuterol/Ipratropium 3.0-0.5 MG/3 ML Neb Soln NEB PRN (16:38)
[2024-06-24] MEDS: Albuterol/Ipratropium 3.0-0.5 MG/3 ML Neb Soln ONE ×2 (17:14)
[2024-06-24 17:17] LABS: BASOPHILS ABSOLUTE AUTO 0.03 K/uL (0.00-0.20); BASOPHILS PERCENT AUTO 0.5 % (0.0-2.0); EOSINOPHILS ABSOLUTE AUTO 0.02 K/uL (0.00-0.50); EOSINOPHILS PERCENT AUTO 0.3 % (0.0-5.0); HEMATOCRIT 42.7 % (34.0-46.0); HEMOGLOBIN 14.3 g/dL (11.7-15.5); IMMATURE GRAN ABSOLUTE AUTO 0.01 10^3/uL (0.00-0.04); IMMATURE GRAN PERCENT AUTO 0.2 % (0.0-0.4); LYMPHOCYTES ABSOLUTE AUTO 1.19 K/uL (0.50-3.50); LYMPHOCYTES PERCENT AUTO 18.6 % (10.0-50.0); MEAN CORPUSCULAR HEMOGLOBIN 30.6 pg (28.2-33.3); MEAN CORPUSCULAR HGB CONC 33.5 g/dL (31.7-36.0); MEAN CORPUSCULAR VOLUME 91.4 fL (84.0-98.0); MONOCYTES ABSOLUTE AUTO 0.86 K/uL (0.00-1.00); MONOCYTES PERCENT AUTO 13.4 % (2.0-14.0); PLATELET COUNT,PLT 122 K/uL (150-350); RED BLOOD CELL COUNT 4.67 M/uL (3.77-5.09); RED CELL DISTRIBUTION WIDTH 12.8 % (11.2-14.1); WHITE BLOOD CELL COUNT,WBC 6.4 K/uL (4.0-10.2)
[2024-06-24 17:30] LABS: PROTHROMBIN TIME 9.5 SEC (9.0-11.1)
[2024-06-24 17:41] LABS: ALANINE AMINOTRANSFERASE,ALT 15 U/L (12-78); ALBUMIN 3.6 g/dL (3.4-5.0); ALKALINE PHOSPHATASE 86 IU/L (46-116); ANION GAP 14.1 meq/L (7-15); ASPARTATE AMNIOTRANSFERASE,AST 27 U/L (15-37); BILIRUBIN TOTAL 0.4 mg/dL (0.2-1.0); BLOOD UREA NITROGEN,BUN 14 mg/dL (7-18); CALCIUM 8.4 mg/dL (8.5-10.1); CARBON DIOXIDE,CO2 26.7 mmol/L (21.0-32.0); CHLORIDE,CL 97 mmol/L (98-107); CREATININE 0.71 mg/dL (0.51-1.17); ESTIMATED GFR 88 mL/min (>=60); GLUCOSE RANDOM 112 mg/dL (70-99); MAGNESIUM 1.8 mg/dL (1.8-2.4); POTASSIUM,K 3.8 mmol/L (3.5-5.1); PRO B-TYPE NATRIUR PEPT,BNPPRO 188 pg/mL (0-125); PROTEIN TOTAL,TP 7.1 g/dL (6.4-8.2); SODIUM,NA 134 mmol/L (136-145)
[2024-06-24] MEDS: Sodium Chloride 0.9% 10 ML Syringe FLUSH PRN (18:46)
[2024-06-24] MEDS: methylPREDNISolone Sodium Succinate 40 MG/1 ML SDV IVPUSH ONE (18:46)
[2024-06-24] MEDS: Take Home: predniSONE 20 MG, 4 Tab Pack PO ONE (18:48)
[2024-06-24 18:50] VITALS: BP 136/65; PULSE 70
[2024-06-24] MEDS: Take Home: Albuterol/Ipratropium 3.0-0.5 MG/3 ML Neb Soln, 4 Neb Pack NEB ONE (19:06)
== END 2024-06-24 19:20 | disposition home or self-care (01) ==
LOC: LL.ED 16:29
DX: J10.1 Influenza due to other identified influenza virus with other respiratory manifestations (principal); J44.9 Chronic obstructive pulmonary disease, unspecified; I10 Essential (primary) hypertension; E78.00 Pure hypercholesterolemia, unspecified; Z79.899 Other long term (current) drug therapy
CPT/HCPCS: 36415; 71046; 80053; 83735; 83880; 84484; 85025; 85610; 87428-QW; 93005; 93010; 94640; 96374; 99284; 99285-25; A9270-GY; J2919; J7620-GY